=== PATIENT | male | born 1955 | race Hispanic/Latino ===

== ENCOUNTER 2018-09-11 10:12 | Emergency (ER) | payer BC, OTHER ==
[2018-09-11 11:05] LABS: Anion Gap 17 mmol/L (10-20); BUN (Urea Nitrogen) 9 mg/dL (8.4-25.7); Calc. Creatinine Clearance 0 mL/min (70-130); Calcium 9.3 mg/dL (7.8-10.44); Carbon Dioxide 24 mmol/L (23-31); Chloride 103 mmol/L (98-107); Estimated GFR-MDRD 90; Glucose 204 mg/dL (80-115); Potassium 3.7 mmol/L (3.5-5.1); Sodium 140 mmol/L (136-145); Uric Acid 7.9 mg/dL (3.5-7.2)
== END 2018-09-11 11:22 | disposition home or self-care (01) ==
LOC: NAV ERS 10:12
DX: M10.9 Gout, unspecified (principal)
CPT/HCPCS: 80048; 84550; 99283

== ENCOUNTER 2024-03-14 14:17 | Emergency (ER) | payer BC, SELFPAY ==
[~2024-03-14 14:17] MED LIST: Iopamidol 370 76% 100 ML VIAL ONE
[2024-03-14 15:14] LABS: #Basophils 0.1 thou/uL (0.0-0.2); #Eosinophils 0.1 thou/uL (0.0-0.7); #Lymphocytes 1.6 thou/uL (1.20-3.40); #Monocytes 0.4 thou/uL (0.11-0.59); #Neutrophils 4.1 thou/uL (1.40-6.50); %Basophils 1.5 % (0.0-1.0); %Eosinophils 2.1 % (0.0-10.0); %Lymphocytes 25.5 % (21.0-51.0); %Monocytes 6.6 % (0.0-10.0); %Neutrophils 64.3 % (42.0-75.0); Hematocrit 53.1 % (42.0-52.0); Hemoglobin 17.7 g/dL (14.0-18.0); Mean Corpuscular HGB CONC 33.4 g/dL (32.0-36.0); Mean Corpuscular Hemoglobin 32.4 pg (27.0-31.0); Mean Corpuscular Volume 96.9 fl (78.0-98.0); Mean Platelet Volume 7.8 fL (7.4-10.4); Platelet Count 225 10x3/uL (130-400); RBC Distribution Width 12.5 % (11.5-14.5); Red Blood Cell (RBC) Count 5.48 mill/uL (4.70-6.10); White Blood Cell (WBC) Count 6.4 10x3/uL (4.8-10.8)
[2024-03-14] MEDS ORDERED: Acetaminophen 325 MG TAB ONE (15:17)
[2024-03-14 15:29] LABS: ALT (SGPT) 19 U/L (8-55); AST (SGOT) 20 U/L (5-34); Albumin 3.9 g/dL (3.4-4.8); Alkaline Phosphatase 81 U/L (40-110); Anion Gap 11 mmol/L (10-20); BUN (Urea Nitrogen) 8 mg/dL (8.4-25.7); Bilirubin, Total 0.7 mg/dL (0.2-1.2); Calc. Creatinine Clearance 0 mL/min (70-130); Calcium 9.4 mg/dL (7.8-10.44); Carbon Dioxide 26 mmol/L (23-31); Chloride 106 mmol/L (98-107); Estimated GFR 98; Globulin 3.4 g/dL (2.4-3.5); Glucose 187 mg/dL (80-115); Potassium 3.4 mmol/L (3.5-5.1); Protein, Total 7.3 g/dL (5.8-8.1); Sodium 140 mmol/L (136-145)
== END 2024-03-14 16:20 | disposition home or self-care (01) ==
LOC: NAV ERS 14:17
DX: S30.1XXA Contusion of abdominal wall, initial encounter (principal); S50.12XA Contusion of left forearm, initial encounter; S50.11XA Contusion of right forearm, initial encounter; V43.52XA Car driver injured in collision with other type car in traffic accident, initial encounter
CPT/HCPCS: 74177; 80053; 85025; Q9967